=== PATIENT | female | born 1930 | race Caucasian/White ===

== ENCOUNTER 2016-08-14 15:49 | Inpatient (IN) | payer OTHER, BC ==
[~2016-08-14] VITALS: Ht 149.9 cm; Wt 59.3 kg
[~2016-08-14 15:49] MED LIST: ADVAIR 250/501 DISK IH; ADVAIR 500/501 DISK IH; AMOX TR-K CLV1 EAC3 PO; ASPIR 8181 M1 PO; ATORVASTATIN CA80 MG PO; AVENTYL,PAMELOR50 MG PO; DITROPAN5 MG PO; FAMOTIDINE20 MG PO; LASIX40 MG PO; LEVO-T100 MCG PO; LEVOTHROID88 MCG PO; LOPRESSOR50 MG PO; LOSARTAN POTAS100 MG PO; OCUVITE LUTEIN1 EACH PO; PLAVIX75 MG PO; PRAVACHOL40 MG PO; PREDNISONE10 MG PO; PROAIR HFA8.5 GM IH; SPIRIVA1 INHALATI IH; XOPENEX0.31 MG/3 IH; ZANTAC150 M1 PO
[2016-08-14 16:37] LABS: HEMATOCRIT 34.5 % (36.0-46.0); MCH 28.9 PG (29.0-34.0); MCHC 31.3 G/DL (30.0-36.0); MCV 92.2 FL (83-99); MEAN PLAT.VOLUME 9.6 uM^3 (9.5-12.4); PLATELET COUNT 268 K/uL (156-360); RBC DIS.WIDTH-CV 15.4 % (11.8-14.6); RBC DIS.WIDTH-SD 51.7 % (39-53); RED BLOOD COUNT 3.74 M/uL (3.80-5.20); WHITE BLOOD COUNT 11.4 K/uL (4.1-10.2)
[2016-08-14 16:51] LABS: D-DIMER ELISA 1.86 mg/L FEU (< 0.57); PROTHROMBIN TIME 10.5 (9.2-11.2)
[2016-08-14 16:58] LABS: TROP-I INTERPRETATION INDETERMINATE; TROPONIN-I 0.41 ng/mL (0.0-0.30)
[2016-08-14 17:00] LABS: CHLORIDE 106 mEq/L (99-109); POTASSIUM 4.4 mEq/L (3.7-5.4); SODIUM 141 mEq/L (136-147)
[2016-08-14 17:02] LABS: GLUCOSE 106 mg/dL (70-99)
[2016-08-14 17:03] LABS: ANION GAP 13 MEQ/L (2-14)
[2016-08-14 17:04] LABS: TOTAL BILIRUBIN 0.3 mg/dL (0.0-1.0)
[2016-08-14 17:06] LABS: ALKALINE PHOSPHATASE 74 IU/L (3-129); GFR ESTIMATE (CALCULATED) 19 mL/min/
[2016-08-14 17:07] LABS: DIRECT BILIRUBIN 0.1 mg/dL (0.0-0.3); UREA NITROGEN (BUN) 86 mg/dL (9-23)
[2016-08-14 17:09] LABS: LIPASE 67 U/L (1.0-51.0)
[2016-08-14 19:15] LABS: ADD MIUA? YES; BILIRUBIN NEGATIVE; BLOOD NEGATIVE; COLOR YELLOW ((YELLOW)); GLUCOSE (STRIP) NEGATIVE; KETONES NEGATIVE; LEUKOCYTES MODERATE; NITRITE NEGATIVE; PROTEIN (STRIP) NEGATIVE; SPECIFIC GRAVITY 1.016 (1.000-1.030); UROBILINOGEN 0.2 MG/DL (0.2-1.0)
[2016-08-14 19:24] LABS: BACTERIA 1+ /HPF; CELLULAR CASTS 0-5 /LPF; EPITHELIAL CELLS 2+ /HPF; HYALINE CASTS 0-5 /LPF; MUCUS TRACE /LPF; RED BLOOD CELLS 0-5 /HPF (0-5); UCUL ADDED? NO; WHITE BLOOD CELLS 20-30 /HPF (0-5)
[2016-08-14] MEDS ORDERED: PERCOCET 5/31 TABLET PO (19:59)
[2016-08-14] MEDS ORDERED: IBUPROFEN600 MG PO (19:59)
[2016-08-14] MEDS ORDERED: LIDOCAINE HCL35 GM TP (19:59)
[2016-08-14] MEDS ORDERED: CILOSTAZOL50 MG PO (19:59)
[2016-08-14 23:50] LABS: TROP-I INTERPRETATION POSITIVE
[2016-08-14 23:56] VITALS: BP 109/57
[2016-08-15 04:03] VITALS: BP 106/51
[2016-08-15 05:25] LABS: EOSINOPHIL (%) 2.3 % (0-5); EOSINOPHIL COUNT 0.2 K/uL (0-0.3); HEMATOCRIT 28.8 % (36.0-46.0); IMMATURE GRANULOCYTE (%) 0.2 % (0.0-0.7); INSTRUMENT ABS NEUTROPHIL CT 7.8 K/uL; LYMPHOCYTE COUNT 1.2 K/uL (1.0-2.8); MCH 29.4 PG (29.0-34.0); MCHC 31.6 G/DL (30.0-36.0); MCV 93.2 FL (83-99); MEAN PLAT.VOLUME 10.8 uM^3 (9.5-12.4); MONOCYTE (%) 7.5 % (3-12); MONOCYTE COUNT 0.8 K/uL (0-0.8); NEUTROPHIL (%) 77.4 % (45-76); NEUTROPHIL COUNT 7.8 K/uL (1.8-6.4); PLATELET COUNT 206 K/uL (156-360); RBC DIS.WIDTH-CV 15.5 % (11.8-14.6); RBC DIS.WIDTH-SD 53.1 % (39-53); RED BLOOD COUNT 3.09 M/uL (3.80-5.20); WHITE BLOOD COUNT 10.1 K/uL (4.1-10.2)
[2016-08-15 05:45] LABS: TROPONIN-I 2.41 ng/mL (0.0-0.30)
[2016-08-15 05:46] LABS: TROP-I INTERPRETATION POSITIVE
[2016-08-15 08:50] VITALS: BP 109/55
[2016-08-15 09:57] LABS: ANION GAP 13 MEQ/L (2-14); CHLORIDE 111 MEQ/L (99-109); GFR ESTIMATE (CALCULATED) 23 mL/min/; GLUCOSE 100 mg/dL (70-99); SAMPLE HEMOLYSIS CHECK 0; SAMPLE ICTERIC CHECK 0; SAMPLE LIPEMIA CHECK 0; SODIUM 143 MEQ/L (136-147); UREA NITROGEN (BUN) 74 mg/dL (9-23)
[2016-08-15 10:05] LABS: POTASSIUM 5.7 MEQ/L (3.7-5.4)
[2016-08-15 12:03] VITALS: BP 121/59
[2016-08-15 16:23] VITALS: BP 99/53
[2016-08-15 17:27] LABS: ADD MIUA? YES; BILIRUBIN NEGATIVE; BLOOD NEGATIVE; COLOR STRAW ((YELLOW)); GLUCOSE (STRIP) 50; KETONES NEGATIVE; LEUKOCYTES TRACE; NITRITE NEGATIVE; PROTEIN (STRIP) NEGATIVE; SPECIFIC GRAVITY 1.009 (1.000-1.030); UROBILINOGEN 0.2 MG/DL (0.2-1.0)
[2016-08-15 17:33] LABS: BACTERIA RARE /HPF; EPITHELIAL CELLS RARE /HPF; MUCUS TRACE /LPF; RED BLOOD CELLS 0-5 /HPF (0-5); WHITE BLOOD CELLS 0-5 /HPF (0-5)
[2016-08-15 19:34] VITALS: BP 169/70
[2016-08-15 22:54] VITALS: BP 124/59
[2016-08-16 03:41] VITALS: BP 147/73
[2016-08-16 07:37] LABS: EOSINOPHIL (%) 4.2 % (0-5); EOSINOPHIL COUNT 0.3 K/uL (0-0.3); HEMATOCRIT 28.3 % (36.0-46.0); IMMATURE GRANULOCYTE (%) 0.4 % (0.0-0.7); INSTRUMENT ABS NEUTROPHIL CT 4.7 K/uL; LYMPHOCYTE COUNT 1.4 K/uL (1.0-2.8); MCH 29.3 PG (29.0-34.0); MCHC 31.1 G/DL (30.0-36.0); MCV 94.3 FL (83-99); MEAN PLAT.VOLUME 10.2 uM^3 (9.5-12.4); MONOCYTE (%) 8.8 % (3-12); MONOCYTE COUNT 0.6 K/uL (0-0.8); NEUTROPHIL (%) 66.3 % (45-76); NEUTROPHIL COUNT 4.7 K/uL (1.8-6.4); PLATELET COUNT 192 K/uL (156-360); RBC DIS.WIDTH-CV 15.8 % (11.8-14.6); RBC DIS.WIDTH-SD 54.4 % (39-53); WHITE BLOOD COUNT 7.1 K/uL (4.1-10.2)
[2016-08-16 08:59] LABS: ANION GAP 8 MEQ/L (2-14); CHLORIDE 112 MEQ/L (99-109); MAGNESIUM 2.1 mg/dl (1.3-2.7); POTASSIUM 4.6 MEQ/L (3.7-5.4); SAMPLE HEMOLYSIS CHECK 0; SAMPLE ICTERIC CHECK 0; SAMPLE LIPEMIA CHECK 0; SODIUM 143 MEQ/L (136-147)
[2016-08-16 09:06] LABS: GFR ESTIMATE (CALCULATED) 30 mL/min/; GLUCOSE 88 mg/dL (70-99); UREA NITROGEN (BUN) 55 mg/dL (9-23); URIC ACID 6.4 mg/dL (3.1-9.2)
[2016-08-16 10:25] VITALS: BP 135/60
[2016-08-16 16:04] VITALS: BP 149/65
[2016-08-16 19:15] VITALS: BP 117/56
[2016-08-16 23:25] VITALS: BP 120/72
[2016-08-17] VITALS (7 sets, daily range): BP systolic 119–196; BP diastolic 59–88
[2016-08-17 05:53] LABS: ANION GAP 8 MEQ/L (2-14); CHLORIDE 108 MEQ/L (99-109); GFR ESTIMATE (CALCULATED) 33 mL/min/; GLUCOSE 92 mg/dL (70-99); POTASSIUM 4.4 MEQ/L (3.7-5.4); SAMPLE HEMOLYSIS CHECK 0; SAMPLE ICTERIC CHECK 0; SAMPLE LIPEMIA CHECK 0; SODIUM 140 MEQ/L (136-147); UREA NITROGEN (BUN) 46 mg/dL (9-23)
[2016-08-17 05:56] LABS: EOSINOPHIL (%) 2.9 % (0-5); EOSINOPHIL COUNT 0.3 K/uL (0-0.3); HEMATOCRIT 31.5 % (36.0-46.0); IMMATURE GRANULOCYTE (%) 0.5 % (0.0-0.7); INSTRUMENT ABS NEUTROPHIL CT 5.8 K/uL; LYMPHOCYTE COUNT 1.8 K/uL (1.0-2.8); MCH 28.6 PG (29.0-34.0); MCHC 30.5 G/DL (30.0-36.0); MCV 93.8 FL (83-99); MEAN PLAT.VOLUME 11.9 uM^3 (9.5-12.4); MONOCYTE COUNT 0.7 K/uL (0-0.8); NEUTROPHIL (%) 67.3 % (45-76); NEUTROPHIL COUNT 5.8 K/uL (1.8-6.4); PLATELET COUNT 150 K/uL (156-360); RBC DIS.WIDTH-CV 15.5 % (11.8-14.6); RBC DIS.WIDTH-SD 53.8 % (39-53); RED BLOOD COUNT 3.36 M/uL (3.80-5.20); WHITE BLOOD COUNT 8.6 K/uL (4.1-10.2)
[2016-08-18] VITALS (13 sets, daily range): BP systolic 84–139; BP diastolic 41–74
[2016-08-18 06:49] LABS: EOSINOPHIL (%) 4.1 % (0-5); EOSINOPHIL COUNT 0.2 K/uL (0-0.3); HEMATOCRIT 25.3 % (36.0-46.0); IMMATURE GRANULOCYTE (%) 0.3 % (0.0-0.7); INSTRUMENT ABS NEUTROPHIL CT 3.7 K/uL; LYMPHOCYTE COUNT 1.3 K/uL (1.0-2.8); MCH 28.9 PG (29.0-34.0); MCHC 30.8 G/DL (30.0-36.0); MCV 93.7 FL (83-99); MONOCYTE COUNT 0.6 K/uL (0-0.8); NEUTROPHIL (%) 63.6 % (45-76); NEUTROPHIL COUNT 3.7 K/uL (1.8-6.4); RBC DIS.WIDTH-CV 15.4 % (11.8-14.6); RBC DIS.WIDTH-SD 53.1 % (39-53)
[2016-08-18 06:51] LABS: MEAN PLAT.VOLUME 9.9 uM^3 (9.5-12.4); PLATELET COUNT 203 K/uL (156-360); WHITE BLOOD COUNT 5.8 K/uL (4.1-10.2)
[2016-08-18 07:08] LABS: ANION GAP 7 MEQ/L (2-14); CHLORIDE 109 MEQ/L (99-109); GFR ESTIMATE (CALCULATED) 33 mL/min/; GLUCOSE 82 mg/dL (70-99); POTASSIUM 4.2 MEQ/L (3.7-5.4); SAMPLE HEMOLYSIS CHECK 0; SAMPLE ICTERIC CHECK 0; SAMPLE LIPEMIA CHECK 0; SODIUM 142 MEQ/L (136-147); UREA NITROGEN (BUN) 42 mg/dL (9-23)
[2016-08-18 12:22] LABS: HEMATOCRIT 28.6 % (36.0-46.0)
[2016-08-18 20:18] LABS: HEMATOCRIT 25.6 % (36.0-46.0); MCV 95.5 FL (83-99)
[2016-08-18 21:35] LABS: POINT-OF-CARE METER ID UU13113698
[2016-08-19] VITALS (27 sets, daily range): BP systolic 77–171; BP diastolic 37–71
[2016-08-19 06:54] LABS: EOSINOPHIL (%) 3.5 % (0-5); EOSINOPHIL COUNT 0.2 K/uL (0-0.3); HEMATOCRIT 23.7 % (36.0-46.0); IMMATURE GRANULOCYTE (%) 0.6 % (0.0-0.7); INSTRUMENT ABS NEUTROPHIL CT 4.4 K/uL; LYMPHOCYTE COUNT 1.5 K/uL (1.0-2.8); MCH 28.4 PG (29.0-34.0); MCV 94.8 FL (83-99); MEAN PLAT.VOLUME 11.7 uM^3 (9.5-12.4); MONOCYTE (%) 10.3 % (3-12); MONOCYTE COUNT 0.7 K/uL (0-0.8); NEUTROPHIL (%) 63.9 % (45-76); NEUTROPHIL COUNT 4.4 K/uL (1.8-6.4); PLATELET COUNT 143 K/uL (156-360); RBC DIS.WIDTH-CV 15.7 % (11.8-14.6); RBC DIS.WIDTH-SD 54.2 % (39-53); WHITE BLOOD COUNT 6.9 K/uL (4.1-10.2)
[2016-08-19 07:22] LABS: ANION GAP 9 MEQ/L (2-14); CHLORIDE 108 MEQ/L (99-109); GFR ESTIMATE (CALCULATED) 27 mL/min/; GLUCOSE 82 mg/dL (70-99); POTASSIUM 4.5 MEQ/L (3.7-5.4); SAMPLE HEMOLYSIS CHECK 0; SAMPLE ICTERIC CHECK 0; SAMPLE LIPEMIA CHECK 0; SODIUM 139 MEQ/L (136-147); UREA NITROGEN (BUN) 45 mg/dL (9-23)
[2016-08-19 09:20] LABS: PROTHROMBIN TIME 10.3 (9.2-11.2)
[2016-08-19 12:59] LABS: IRON 49 MCG/DL (35-150)
[2016-08-19 13:38] LABS: FERRITIN 62 NG/ML (10-291)
[2016-08-19 19:54] LABS: IMM.RETIC FRACTION 20.9 % (3-19); RETICULOCYTE COUNT 2.3 % (0.5-1.8)
[2016-08-20 04:53] VITALS: BP 125/61
[2016-08-20 07:25] LABS: ANION GAP 10 MEQ/L (2-14); CHLORIDE 110 MEQ/L (99-109); GFR ESTIMATE (CALCULATED) 38 mL/min/; GLUCOSE 80 mg/dL (70-99); POTASSIUM 4.7 MEQ/L (3.7-5.4); SAMPLE HEMOLYSIS CHECK 0; SAMPLE ICTERIC CHECK 0; SAMPLE LIPEMIA CHECK 0; SODIUM 141 MEQ/L (136-147); UREA NITROGEN (BUN) 40 mg/dL (9-23)
[2016-08-20 07:27] LABS: EOSINOPHIL (%) 3.6 % (0-5); EOSINOPHIL COUNT 0.3 K/uL (0-0.3); HEMATOCRIT 32.9 % (36.0-46.0); IMMATURE GRANULOCYTE (%) 0.3 % (0.0-0.7); LYMPHOCYTE COUNT 1.6 K/uL (1.0-2.8); MCH 29.1 PG (29.0-34.0); MCHC 31.9 G/DL (30.0-36.0); MCV 91.1 FL (83-99); MEAN PLAT.VOLUME 9.9 uM^3 (9.5-12.4); MONOCYTE (%) 8.5 % (3-12); MONOCYTE COUNT 0.6 K/uL (0-0.8); NEUTROPHIL (%) 65.8 % (45-76); RBC DIS.WIDTH-SD 52.8 % (39-53); WHITE BLOOD COUNT 7.5 K/uL (4.1-10.2)
[2016-08-20 07:32] LABS: PLATELET COUNT 204 K/uL (156-360); RED BLOOD COUNT 3.61 M/uL (3.80-5.20)
[2016-08-20 07:40] VITALS: BP 148/72
[2016-08-20 12:40] VITALS: BP 125/58
[2016-08-20 16:41] VITALS: BP 125/58; BP 143/63
[2016-08-20 17:48] LABS: HEMATOCRIT 37.4 % (36.0-46.0); MCH 29.1 PG (29.0-34.0); MCHC 31.8 G/DL (30.0-36.0); MCV 91.4 FL (83-99); RBC DIS.WIDTH-CV 15.9 % (11.8-14.6); RBC DIS.WIDTH-SD 52.4 % (39-53); RED BLOOD COUNT 4.09 M/uL (3.80-5.20)
[2016-08-20 17:50] LABS: ABS NEUTROPHIL COUNT 7.1; BASOPHILS 1.8 %; EOSINOPHIL ABS CT 0.3; EOSINOPHILS 3.5 % (0-5.0); INSTRUMENT ABS NEUTROPHIL CT 6.9 K/uL; LYMPHOCYTES 18.4 % (15.0-45.0); SEG.NEUTROPHILS 71.9 % (46.0-76.0); SMUDGE CELLS 4.4; WHITE BLOOD COUNT 9.9 K/uL (4.1-10.2)
[2016-08-20 17:51] LABS: MEAN PLAT.VOLUME 12.3 uM^3 (9.5-12.4)
[2016-08-20 17:57] LABS: PLATELET COUNT UNABLE TO REPORT K/uL (156-360)
[2016-08-20 19:51] VITALS: BP 136/60
[2016-08-20 23:39] VITALS: BP 159/78
[2016-08-21 04:45] VITALS: BP 127/74
[2016-08-21 07:09] LABS: EOSINOPHIL COUNT 0.3 K/uL (0-0.3); HEMATOCRIT 34.1 % (36.0-46.0); IMMATURE GRANULOCYTE (%) 0.4 % (0.0-0.7); LYMPHOCYTE COUNT 1.4 K/uL (1.0-2.8); MCH 29.5 PG (29.0-34.0); MCHC 32.6 G/DL (30.0-36.0); MCV 90.7 FL (83-99); MEAN PLAT.VOLUME 12.1 uM^3 (9.5-12.4); MONOCYTE (%) 7.8 % (3-12); MONOCYTE COUNT 0.7 K/uL (0-0.8); NEUTROPHIL (%) 73.9 % (45-76); RBC DIS.WIDTH-CV 15.9 % (11.8-14.6); RBC DIS.WIDTH-SD 51.9 % (39-53); RED BLOOD COUNT 3.76 M/uL (3.80-5.20); WHITE BLOOD COUNT 9.4 K/uL (4.1-10.2)
[2016-08-21 07:22] VITALS: BP 129/61
[2016-08-21 07:33] LABS: ANION GAP 7 MEQ/L (2-14); CHLORIDE 109 MEQ/L (99-109); GFR ESTIMATE (CALCULATED) 41 mL/min/; GLUCOSE 82 mg/dL (70-99); POTASSIUM 4.1 MEQ/L (3.7-5.4); SAMPLE HEMOLYSIS CHECK 0; SAMPLE ICTERIC CHECK 0; SAMPLE LIPEMIA CHECK 0; SODIUM 140 MEQ/L (136-147); UREA NITROGEN (BUN) 39 mg/dL (9-23)
[2016-08-21 07:35] LABS: PLATELET COUNT 161 K/uL (156-360)
[2016-08-21 10:32] LABS: SMEAR EVALUATION YES
[2016-08-21 11:14] VITALS: BP 109/51
[2016-08-21 17:32] VITALS: BP 143/64
[2016-08-21 19:15] VITALS: BP 125/59
[2016-08-21 23:54] VITALS: BP 120/57
[2016-08-22 04:15] VITALS: BP 145/72
[2016-08-22 06:13] LABS: EOSINOPHIL (%) 3.5 % (0-5); EOSINOPHIL COUNT 0.3 K/uL (0-0.3); IMMATURE GRANULOCYTE (%) 0.5 % (0.0-0.7); LYMPHOCYTE COUNT 1.8 K/uL (1.0-2.8); MCH 28.9 PG (29.0-34.0); MCHC 30.8 G/DL (30.0-36.0); MCV 93.8 FL (83-99); MONOCYTE (%) 13.5 % (3-12); MONOCYTE COUNT 1.1 K/uL (0-0.8); NEUTROPHIL (%) 60.7 % (45-76); RBC DIS.WIDTH-CV 15.9 % (11.8-14.6); RBC DIS.WIDTH-SD 53.7 % (39-53); RED BLOOD COUNT 3.84 M/uL (3.80-5.20); WHITE BLOOD COUNT 8.3 K/uL (4.1-10.2)
[2016-08-22 06:20] LABS: ANION GAP 9 MEQ/L (2-14); CHLORIDE 109 MEQ/L (99-109); GFR ESTIMATE (CALCULATED) 41 mL/min/; GLUCOSE 74 mg/dL (70-99); POTASSIUM 4.6 MEQ/L (3.7-5.4); SAMPLE HEMOLYSIS CHECK 0; SAMPLE ICTERIC CHECK 0; SAMPLE LIPEMIA CHECK 0; SODIUM 142 MEQ/L (136-147); UREA NITROGEN (BUN) 36 mg/dL (9-23)
[2016-08-22 06:47] LABS: MEAN PLAT.VOLUME 9.6 uM^3 (9.5-12.4); PLATELET COUNT 230 K/uL (156-360)
[2016-08-22 07:34] VITALS: BP 139/63
[2016-08-22 11:09] VITALS: BP 105/57
[2016-08-22 11:17] LABS: POC NON-PRINT COM 1 ND
[2016-08-22 11:18] LABS: POC NON-PRINT COM 1 ND
[2016-08-22] MEDS ORDERED: IMDUR30 MG PO (14:26)
[2016-08-22] MEDS ORDERED: NITROSTAT0.4 MG SL (14:26)
[2016-08-22] MEDS ORDERED: FUROSEMIDE20 MG PO (14:28)
[2016-08-22] MEDS ORDERED: FAMOTIDINE40 MG PO (14:29)
[2016-08-22] MEDS ORDERED: POLYETHYLENE GL17 GM PO (14:29)
[2016-08-22] MEDS ORDERED: PERCOCET 5/31 TABLET PO (14:34)
[2016-08-22] MEDS ORDERED: LYRICA75 MG PO (14:34)
[2016-08-22 16:29] VITALS: BP 144/68
== END 2016-08-22 16:30 | DRG 280 ==
LOC: EME 15:49 → 4EAST 22:24 → EDOF 22:24 → 4EAST 23:36
PROVIDERS: Anesthesiology; Emergency Medicine; Family Medicine; Internal Medicine; Internal Medicine Nephrology; Specialist; Student in an Organized Health Care Education/Training Program
PROC: 0HDLXZZ Extraction of Left Lower Leg Skin, External Approach (ICD-10-PCS; 2016-08-15)
PROC: 30233N1 Transfusion of Nonautologous Red Blood Cells into Peripheral Vein, Percutaneous Approach (ICD-10-PCS; principal; 2016-08-19)
DX: I21.4 Non-ST elevation (NSTEMI) myocardial infarction (principal); J96.01 Acute respiratory failure with hypoxia; N17.9 Acute kidney failure, unspecified; N39.0 Urinary tract infection, site not specified; E87.2 Acidosis; D64.9 Anemia, unspecified; K22.4 Dyskinesia of esophagus; I95.9 Hypotension, unspecified; I70.0 Atherosclerosis of aorta; I12.9 Hypertensive chronic kidney disease with stage 1 through stage 4 chronic kidney disease, or unspecified chronic kidney disease; N18.3 Chronic kidney disease, stage 3 (moderate); L89.890 Pressure ulcer of other site, unstageable; L89.320 Pressure ulcer of left buttock, unstageable; I70.242 Atherosclerosis of native arteries of left leg with ulceration of calf; E87.5 Hyperkalemia; E78.5 Hyperlipidemia, unspecified; E86.0 Dehydration; I27.2 Other secondary pulmonary hypertension; J44.9 Chronic obstructive pulmonary disease, unspecified; I25.119 Atherosclerotic heart disease of native coronary artery with unspecified angina pectoris; E03.9 Hypothyroidism, unspecified; K21.9 Gastro-esophageal reflux disease without esophagitis; K59.09 Other constipation; F32.9 Major depressive disorder, single episode, unspecified; H91.93 Unspecified hearing loss, bilateral; Z66 Do not resuscitate; Z95.820 Peripheral vascular angioplasty status with implants and grafts; Z87.891 Personal history of nicotine dependence; Z79.1 Long term (current) use of non-steroidal anti-inflammatories (NSAID); Z86.010 Personal history of colon polyps; Z87.11 Personal history of peptic ulcer disease
CPT/HCPCS: 36415; 71020; 73630; 74176; 74220; 76770; 76937; 78582; 80048; 80069; 80076; 81003; 82272; 82565; 82570; 82607; 82728; 82746; 82948; 83540; 83690; 83735; 84100; 84156; 84300; 84443; 84466; 84484; 84520; 84550; 85007; 85014; 85018; 85025; 85025 91; 85027; 85045; 85060; 85379; 85610; 85730; 86850; 86900; 86901; 86920; 87070; 87075; 87086; 87205; 93005; 94799; 99202; 99281; 99285; A9540; A9567; J0696; J1644; J1815; J1940; J2270; J2405; J7030; J7050; J7120; P9016

== ENCOUNTER → 2016-08-28 | Outpatient (CLI) | payer MEDICARE, BC ==
[~2016-08-28] MED LIST changes: +CILOSTAZOL50 MG PO; +FAMOTIDINE40 MG PO; +FUROSEMIDE20 MG PO; +IBUPROFEN600 MG PO; +IMDUR30 MG PO; +LIDOCAINE HCL35 GM TP; +LYRICA75 MG PO; +NITROSTAT0.4 MG SL; +PERCOCET 5/31 TABLET PO; +POLYETHYLENE GL17 GM PO
== END | disposition home or self-care (01) ==
LOC: CDC 10:53
DX: Z01.810 Encounter for preprocedural cardiovascular examination (principal); I51.7 Cardiomegaly
CPT/HCPCS: 93000

== ENCOUNTER 2016-09-06 18:01 | Inpatient (IN) | payer OTHER, BC ==
[~2016-09-06] VITALS: Ht 160 cm; Wt 71.0 kg
[2016-09-06 18:39] LABS: EOSINOPHIL (%) 2.4 % (0-5); EOSINOPHIL COUNT 0.2 K/uL (0-0.3); HEMATOCRIT 34.8 % (36.0-46.0); IMMATURE GRANULOCYTE (%) 0.4 % (0.0-0.7); INSTRUMENT ABS NEUTROPHIL CT 8.2 K/uL; LYMPHOCYTE COUNT 0.7 K/uL (1.0-2.8); MCH 29.1 PG (29.0-34.0); MCHC 31.3 G/DL (30.0-36.0); MONOCYTE (%) 8.7 % (3-12); MONOCYTE COUNT 0.9 K/uL (0-0.8); NEUTROPHIL (%) 81.5 % (45-76); NEUTROPHIL COUNT 8.2 K/uL (1.8-6.4); PLATELET COUNT 263 K/uL (156-360); RBC DIS.WIDTH-CV 15.4 % (11.8-14.6); RBC DIS.WIDTH-SD 51.7 % (39-53); RED BLOOD COUNT 3.74 M/uL (3.80-5.20); WHITE BLOOD COUNT 10.1 K/uL (4.1-10.2)
[2016-09-06 18:49] LABS: CHLORIDE 107 mEq/L (99-109); POTASSIUM 4.9 mEq/L (3.7-5.4); SODIUM 145 mEq/L (136-147)
[2016-09-06 18:50] LABS: GLUCOSE 108 mg/dL (70-99)
[2016-09-06 18:52] LABS: ANION GAP 17 MEQ/L (2-14)
[2016-09-06 18:54] LABS: GFR ESTIMATE (CALCULATED) 28 mL/min/
[2016-09-06 18:55] LABS: UREA NITROGEN (BUN) 28 mg/dL (9-23)
[2016-09-06 18:59] LABS: TROP-I INTERPRETATION INDETERMINATE; TROPONIN-I 0.49 ng/mL (0.0-0.30)
[2016-09-06 19:44] LABS: CARBON DIOXIDE (BICARBONATE) 28.9 MEQ/L (20-31)
[2016-09-06 19:54] LABS: ADD MIUA? YES; BILIRUBIN NEGATIVE; BLOOD SMALL; COLOR YELLOW ((YELLOW)); GLUCOSE (STRIP) NEGATIVE; KETONES NEGATIVE; LEUKOCYTES NEGATIVE; NITRITE NEGATIVE; PROTEIN (STRIP) NEGATIVE; SPECIFIC GRAVITY 1.012 (1.000-1.030); UROBILINOGEN 0.2 MG/DL (0.2-1.0)
[2016-09-06] MEDS ORDERED: METOPROLOL TART50 MG PO (20:07)
[2016-09-06] MEDS ORDERED: ISOSORBIDE DINI30 MG PO (20:08)
[2016-09-06] MEDS ORDERED: LASIX20 MG PO (20:08)
[2016-09-06 20:09] LABS: BACTERIA NONE SEEN /HPF; EPITHELIAL CELLS NONE SEEN /HPF; HYALINE CASTS 15-20 /LPF; MUCUS TRACE /LPF; RED BLOOD CELLS 0-5 /HPF (0-5); UCUL ADDED? NO; WHITE BLOOD CELLS 0-5 /HPF (0-5)
[2016-09-06] MEDS ORDERED: SPIRIVA RESPIMAT4 G1 IH (20:09)
[2016-09-06] MEDS ORDERED: SPIRIVA1 INHALATI IH (20:11)
[2016-09-06] MEDS ORDERED: LYRICA75 MG PO (20:11)
[2016-09-06] MEDS ORDERED: PHILLIPS'400 MG/5 M PO (20:12)
[2016-09-06] MEDS ORDERED: PERCOCET 5/31 TABLET PO (20:12)
[2016-09-06] MEDS ORDERED: FLEET ENEMA-AD118 ML PR (20:13)
[2016-09-06] MEDS ORDERED: DULCOLAX10 MG PR (20:13)
[2016-09-06 21:38] LABS: INTER. NORMALIZED RATIO 1.1
[2016-09-07] VITALS (8 sets, daily range): BP systolic 86–130; BP diastolic 49–60
[2016-09-07 02:01] LABS: TROP-I INTERPRETATION POSITIVE; TROPONIN-I 17.29 ng/mL (0.0-0.30)
[2016-09-07 08:04] LABS: EOSINOPHIL COUNT 0.1 K/uL (0-0.3); HEMATOCRIT 25.2 % (36.0-46.0); IMMATURE GRANULOCYTE (%) 0.5 % (0.0-0.7); INSTRUMENT ABS NEUTROPHIL CT 6.8 K/uL; MCH 29.8 PG (29.0-34.0); MCV 96.2 FL (83-99); MEAN PLAT.VOLUME 10.8 uM^3 (9.5-12.4); NEUTROPHIL (%) 76.4 % (45-76); NEUTROPHIL COUNT 6.8 K/uL (1.8-6.4); PLATELET COUNT 215 K/uL (156-360); RBC DIS.WIDTH-CV 15.8 % (11.8-14.6); RBC DIS.WIDTH-SD 54.4 % (39-53); WHITE BLOOD COUNT 8.9 K/uL (4.1-10.2)
[2016-09-07 08:11] LABS: TROP-I INTERPRETATION POSITIVE; TROPONIN-I 40.13 ng/mL (0.0-0.30)
[2016-09-07 08:28] LABS: ALKALINE PHOSPHATASE 97 IU/L (3-129); ANION GAP 11 MEQ/L (2-14); CHLORIDE 112 MEQ/L (99-109); GFR ESTIMATE (CALCULATED) 32 mL/min/; GLUCOSE 109 mg/dL (70-99); POTASSIUM 4.2 MEQ/L (3.7-5.4); SAMPLE HEMOLYSIS CHECK 0; SAMPLE ICTERIC CHECK 0; SAMPLE LIPEMIA CHECK 0; SODIUM 142 MEQ/L (136-147); TOTAL BILIRUBIN 0.5 MG/DL (0.0-1.0); UREA NITROGEN (BUN) 27 mg/dL (9-23)
[2016-09-07 09:17] LABS: RED BLOOD COUNT 2.62 M/uL (3.80-5.20)
[2016-09-07 10:35] LABS: INTERNAL CONTROL VALID? YES
[2016-09-07 14:55] LABS: HEMATOCRIT 27.2 % (36.0-46.0); MCV 95.1 FL (83-99)
[2016-09-07 15:20] LABS: TROP-I INTERPRETATION POSITIVE
[2016-09-08 00:06] VITALS: BP 111/54
[2016-09-08 03:56] VITALS: BP 130/60
[2016-09-08 07:02] LABS: HEMATOCRIT 24.6 % (36.0-46.0); MCHC 30.5 G/DL (30.0-36.0); RBC DIS.WIDTH-CV 15.7 % (11.8-14.6); RBC DIS.WIDTH-SD 54.4 % (39-53); RED BLOOD COUNT 2.59 M/uL (3.80-5.20); WHITE BLOOD COUNT 7.6 K/uL (4.1-10.2)
[2016-09-08 07:29] LABS: METH RESISTANT S AUREUS PCR NEGATIVE (NEGATIVE); PROBE CHECK PASS; SPECIMEN PROCESSING CONTROL PASS
[2016-09-08 07:40] LABS: MEAN PLAT.VOLUME 12.1 uM^3 (9.5-12.4); PLAT.SUFFICIENCY ADEQUATE
[2016-09-08 08:15] VITALS: BP 119/58
[2016-09-08 08:26] LABS: PLATELET COUNT 135 K/uL (156-360)
[2016-09-08 09:00] LABS: TROP-I INTERPRETATION POSITIVE; TROPONIN-I 23.57 ng/mL (0.0-0.30)
[2016-09-08 09:00] LABS: ANION GAP 9 MEQ/L (2-14); CHLORIDE 113 MEQ/L (99-109); SAMPLE HEMOLYSIS CHECK 0; SAMPLE ICTERIC CHECK 0; SAMPLE LIPEMIA CHECK 0; SODIUM 142 MEQ/L (136-147)
[2016-09-08 09:06] LABS: GFR ESTIMATE (CALCULATED) 41 mL/min/; GLUCOSE 98 mg/dL (70-99); UREA NITROGEN (BUN) 22 mg/dL (9-23)
[2016-09-08 11:45] VITALS: BP 108/53
[2016-09-08 12:08] LABS: HEMATOCRIT 27.4 % (36.0-46.0); MCV 93.5 FL (83-99)
[2016-09-08 16:30] VITALS: BP 146/69
[2016-09-08 19:10] VITALS: BP 139/69
[2016-09-09 00:02] VITALS: BP 127/65
[2016-09-09 03:34] VITALS: BP 115/59
[2016-09-09 06:36] LABS: HEMATOCRIT 25.4 % (36.0-46.0); MCH 29.9 PG (29.0-34.0); MCHC 31.5 G/DL (30.0-36.0); MCV 94.8 FL (83-99); MEAN PLAT.VOLUME 10.9 uM^3 (9.5-12.4); RBC DIS.WIDTH-CV 15.6 % (11.8-14.6); RBC DIS.WIDTH-SD 53.7 % (39-53); RED BLOOD COUNT 2.68 M/uL (3.80-5.20); WHITE BLOOD COUNT 6.3 K/uL (4.1-10.2)
[2016-09-09 06:41] LABS: PLATELET COUNT 201 K/uL (156-360)
[2016-09-09 06:49] LABS: ANION GAP 12 MEQ/L (2-14); CHLORIDE 111 MEQ/L (99-109); GFR ESTIMATE (CALCULATED) 45 mL/min/; GLUCOSE 82 mg/dL (70-99); POTASSIUM 4.3 MEQ/L (3.7-5.4); SAMPLE HEMOLYSIS CHECK 0; SAMPLE ICTERIC CHECK 0; SAMPLE LIPEMIA CHECK 0; SODIUM 143 MEQ/L (136-147); UREA NITROGEN (BUN) 21 mg/dL (9-23)
[2016-09-09 08:27] VITALS: BP 181/81
[2016-09-09 09:30] LABS: BASE EXCESS -4.1 mEq/L (-3 to +3); BICARBONATE 20.9 mEq/L (22-26); CARBOXY HGB 2.6 % (0-5); METHEMOGLOBIN 1.7 % (0-1.5); PCO2 37 mm Hg (35-45); PO2 69 mm Hg (80-100); pH 7.36 (7.35-7.45)
[2016-09-09 09:31] LABS: COMMENTS - BLOOD GASES A+C+; DEVICE NC; O2 FLOW 2 L/MIN; SITE RR; TOTAL RESP RATE 22 resp/min
[2016-09-09 11:27] VITALS: BP 131/66
[2016-09-09 16:10] LABS: POC NON-PRINT COM 1 ND
[2016-09-09 19:07] VITALS: BP 144/65
[2016-09-10 07:00] LABS: HEMATOCRIT 30.6 % (36.0-46.0); MCH 29.5 PG (29.0-34.0); MCHC 30.7 G/DL (30.0-36.0); MCV 95.9 FL (83-99); MEAN PLAT.VOLUME 10.3 uM^3 (9.5-12.4); PLATELET COUNT 246 K/uL (156-360); RBC DIS.WIDTH-CV 15.2 % (11.8-14.6); RBC DIS.WIDTH-SD 53.2 % (39-53); RED BLOOD COUNT 3.19 M/uL (3.80-5.20); WHITE BLOOD COUNT 6.8 K/uL (4.1-10.2)
[2016-09-10 08:22] VITALS: BP 132/74
[2016-09-11] MEDS ORDERED: HALDOL2 MG PO (14:09)
[2016-09-11] MEDS ORDERED: TRANSDERM-SCO1 PATCH TD (14:10)
== END 2016-09-11 16:11 | DRG 853 ==
LOC: EME 18:01 → 5EAST 20:47 → 4EAST 20:47 → EDOF 20:47 → 4EAST 09-07 01:18 → 5EAST 09-09 18:49
PROVIDERS: Emergency Medicine; Hospitalist; Internal Medicine; Nurse Practitioner Family
DX: A41.9 Sepsis, unspecified organism (principal); I21.4 Non-ST elevation (NSTEMI) myocardial infarction; R65.21 Severe sepsis with septic shock; G93.41 Metabolic encephalopathy; I50.33 Acute on chronic diastolic (congestive) heart failure; N17.9 Acute kidney failure, unspecified; J18.9 Pneumonia, unspecified organism; I13.0 Hypertensive heart and chronic kidney disease with heart failure and stage 1 through stage 4 chronic kidney disease, or unspecified chronic kidney disease; I25.10 Atherosclerotic heart disease of native coronary artery without angina pectoris; I48.91 Unspecified atrial fibrillation; J44.0 Chronic obstructive pulmonary disease with (acute) lower respiratory infection; Z66 Do not resuscitate; Z51.5 Encounter for palliative care; Y95 Nosocomial condition; K59.00 Constipation, unspecified; E03.9 Hypothyroidism, unspecified; I73.9 Peripheral vascular disease, unspecified; Z87.891 Personal history of nicotine dependence; I35.0 Nonrheumatic aortic (valve) stenosis; L97.821 Non-pressure chronic ulcer of other part of left lower leg limited to breakdown of skin; L97.421 Non-pressure chronic ulcer of left heel and midfoot limited to breakdown of skin; D64.9 Anemia, unspecified; E78.5 Hyperlipidemia, unspecified; N18.3 Chronic kidney disease, stage 3 (moderate)
CPT/HCPCS: 36600; 71010; 80048; 80053; 80202; 81003; 82272; 82803; 83605; 84439; 84443; 84484; 85014; 85018; 85025; 85027; 85610; 85730; 86850; 86900; 86901; 87040; 87070; 87075; 87205; 87449; 87641; 93005; 94640; 94640 76; 94644; 94667; 94668; 94760; 94799; 99202; 99281; 99285; J1160; J2060; J2270; J2543; J3370; J7030; J7050; J7644; S0028